=== PATIENT | male | born 1985 | race African-American/Black ===

== ENCOUNTER 2019-07-26 22:39 | Emergency (ER) | payer OTHER ==
[~2019-07-26] VITALS: Ht 175.3 cm; Wt 64.9 kg
[2019-07-26 23:15] VITALS: BP 140/87
[2019-07-27 00:55] VITALS: BP 140/87
--- NOTE | 2019-07-27 02:29 | Emergency Room Report ---
History of Present Illness General Chief Complaint: General Complaint Present Illness HPI Disclaimer: Please note that this report is being documented using [employer] technology. This can lead to erroneous entry secondary to incorrect interpretation by the dictating instrument. HPI: 33-year-old male presented to the ER requesting outpatient resources. He states he is been feeling depressed recently. No suicidal or homicidal ideation. He recently moved to the [facility] from [place]. He states he currently does not have outpatient follow-up. He denies any fevers nausea vomiting chest pain or shortness of breath. He was previously on psychiatric medications but has been off meds for many years. 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 Patient History Reviewed Nursing Documentation: PMH: Agreed; PSxH: Agreed Review of Systems All Other Systems: negative except mentioned in HPI Physical Exam Vital Signs Date Time Temp Pulse Resp B/P (MAP) Pulse Ox O2 Delivery O2 Flow Rate FiO2 07/26/19 23:08 99.3 97 16 140/87 (104) 97 Room Air Sp02 EP Interpretation: reviewed, normal General Appearance: well appearing, no apparent distress Head: normocephalic, atraumatic Eyes: bilateral eye PERRL, bilateral eye EOMI ENT: hearing grossly normal, moist mucus membranes Neck: full range of motion, supple Respiratory: lungs clear, normal breath sounds, no rhonchi, no respiratory distress, no retraction, no wheezing Cardiovascular #1: normal peripheral pulses, regular rate, rhythm, no murmur Gastrointestinal: non tender, soft, non-distended, no guarding Neurologic: alert, oriented x3, no focal defects Psychiatric: normal inspection, judgement/insight normal, no suicidal/ homicidal ideation Skin: normal color, warm/dry Medical Decision Making Diagnostic Impression: Primary Impression: Encounter for medical screening examination ER Course MDM: Patient presented requesting outpatient resources. He was requesting to be connected into the mental health system. He is new to the area. He had no suicidal homicidal ideation. Was not meeting 5150 criteria. He did not wish to be started on medications today. Patient was provided with outpatient resources for mental health and primary care follow-up. He was instructed return for any worsening symptoms. He was otherwise nontoxic stable for discharge. Last Vital Signs Date Time Temp Pulse Resp B/P (MAP) Pulse Ox O2 Delivery O2 Flow Rate FiO2 07/27/19 00:55 99.3 72 16 140/87 97 Room Air Disposition: HOME, SELF-CARE Condition: Stable Referrals: [facility] Patient Instructions: Depression, Adult, [id number] Additional Instructions: Patient is instructed to follow-up with her primary care doctor, primary care clinic or [facility] in 1 to 2 days. Patient instructed to return for any worsening symptoms or concerns. Disclaimer: Please note that this report is being documented using [employer] technology. This can lead to erroneous entry secondary to incorrect interpretation by the dictating instrument. Mushtaq Kirkpatrick M.D. Jul 27, 2019 02:29
== END 2019-07-27 00:55 | disposition home or self-care (01) ==
LOC: EMR 23:32
DX: F32.9 Major depressive disorder, single episode, unspecified (principal); Z88.2 Allergy status to sulfonamides; Z88.6 Allergy status to analgesic agent; F17.210 Nicotine dependence, cigarettes, uncomplicated
CPT/HCPCS: 99281